=== PATIENT | male | born 1955 | race Caucasian/White ===

== ENCOUNTER 2019-01-06 06:41 | Inpatient (IN) ==
[~2019-01-06 06:41] MED LIST: Bacitracin 50,000 UNIT, Polymyxin B Sulfate 500,000 UNIT, Sodium Chloride IRRigation 1,... IR ONE
[2019-01-06] MEDS ORDERED: Albuterol 2.5 MG/3 ML NEBULIZER IH ONE (06:59)
[2019-01-06] MEDS ORDERED: CeFAZolin Syr 2,000MG/20 ML 2,000 MG/20 ML SYRINGE IVPB ONE (06:59)
[2019-01-06] MEDS ORDERED: Ringers Solution, Lactated 1,000 ML IVC SCH ×2 (07:00→13:12)
[2019-01-06] MEDS ORDERED: *HR* Methadone 10 MG TABLET PO ONE (07:17)
[2019-01-06] MEDS ORDERED: Ipratropium/Albuterol Neb 3 ML IH PRN (07:17)
[2019-01-06] MEDS ORDERED: Gabapentin 300 MG CAPSULE PO ONE (07:17)
[2019-01-06] MEDS ORDERED: Acetaminophen IV 1,000 MG/100 ML INFUS..BTL IVPB ONE (07:17)
[2019-01-06] MEDS ORDERED: Celecoxib 200 MG CAPSULE PO ONE (07:17)
--- NOTE | 2019-01-06 07:18 | Anesthesia Evaluation PreOp ---
Date of Encounter: 01/06/19 Time of Encounter: 07:37 - Past History Planned Operation: ACDF C4-C6, C5 CORPECTOMY Cardiac History: HTN, Hyperlipidemia, Cardiac Surgery (TRANS THORACIC MV REPAIR 2015), Other (MOD CAD BY [facility], NORMAL EF 2017) Pulmonary History: Smoker, COPD, MARIANGEL Dx (NOT CPAP COMPLIANT) WORKERS COMPENSATION ADJUSTER History: Other (CER VICAL RADICULOPATHY) Other Medical History: Denies Any Significant HX Anesthesia History: No Prior Anesthetic Complications, Past Anesthesia Alcohol Use: none Drug use: none Medications and Allergies Albuterol Sulfate [Ventolin Hfa] 2 puff IH Q6H PRN 01/06/19 [History] Budesonide/Formoterol 160/4.5 [Symbicort 160/4.5] 2 puff IH BIDR 01/06/19 [History] Buspirone HCl [Buspar] 10 mg PO BID 01/06/19 [History] Ibuprofen [Ibu-200] 1,200 mg PO TID 01/06/19 [History] Tiotropium [place] [Spiriva Respimat] 2 puff IH DAILY 01/06/19 [History] Allergy/AdvReac Type Severity Reaction Status Date / Time No Known Allergies Allergy Verified 01/06/19 07:26 - Meds/Allergy Pre-op Review Medications Reviewed: Yes Allergies Reviewed: Yes Beta Blockers on Current Med List: No Anesthesia Results - Labs Laboratory Tests 11/19/18 12/31/18 12/31/18 15:24 10:35 10:35 Hgb 14.8 Plt Count 213 Potassium 3.7 Creatinine 1.21 Est GFR (Non-Af Amer) > 60 Hemoglobin A1c 6.2 H Anesthesia Exam Vital Signs/O2 Sat/Glucose, Most Recent Temp Pulse Resp BP Pulse Ox 98.5 F 92 18 175/96 96 01/06/19 07:13 01/06/19 07:13 01/06/19 07:13 01/06/19 07:13 01/06/19 07:13 Weight: 82 KG - BMI 27 NPO (# of Hours): 8 - HEENT Mallampati: II (FULL NECK EXTENSION WITHOUT SYMPTOMS) Teeth: Missing (ONLY 4 TEETH) - WORKERS COMPENSATION ADJUSTER WORKERS COMPENSATION ADJUSTER Motor: Normal RUE, Normal LUE, Normal Face - Cardiac Rhythm: Regular - Pulmonary Breath Sounds: bilateral Clear Anesthesia Assess/Plan ASA Score: 3 Anesthetic Plan: General Monitoring Plan: Standard Monitors, A-Line (POSSIBLE) Recovery Plan: PACU
[2019-01-06] MEDS ORDERED: Dexamethasone 4 MG/ML VIAL ONE (07:20)
[2019-01-06] MEDS ORDERED: Lidocaine -MPF 2% 2 ML VIAL ONE (07:20)
[2019-01-06] MEDS ORDERED: *HR* FentaNYL (PF) 100 MCG/2 ML VIAL ONE (07:20)
[2019-01-06] MEDS ORDERED: Ondansetron 4 MG/2 ML VIAL ONE (07:20)
[2019-01-06] MEDS ORDERED: *HR* Succinylcholine 200 MG/10 ML VIAL IVP ONE (07:20)
[2019-01-06] MEDS ORDERED: *HR* Propofol 200 MG/20 ML VIAL IVP ONE ×4 (07:21→11:03)
[2019-01-06] MEDS ORDERED: *HR* Midazolam HCl 2 MG/2 ML VIAL ONE (07:21)
[2019-01-06] MEDS ORDERED: Lidocaine HCL 4 ML Topical Solution (Laryng-O-Jet Kit Sterile Pak) TP ONE (07:21)
[2019-01-06] MEDS ORDERED: *HR* Remifentanil 1 MG VIAL IVP ONE ×2 (07:25→10:18)
[2019-01-06] MEDS ORDERED: Propofol 500 MG/50 ML INFUS..BTL ONE ×5 (07:25→09:57)
[2019-01-06] MEDS ORDERED: *HR* Phenylephrine 10 MG/ML VIAL ONE (07:26)
--- NOTE | 2019-01-06 07:39 | History & Physical Report ---
Date of Encounter: 01/06/19 Time of Encounter: 07:38 24 Hour HP Update - Instructions Instructions: If the History and Physical is less than 30 days old and was completed prior to A.M. admission and or procedure and has NOT been updated on calendar day of procedure please complete this update prior to performing procedure. - Update Patient reports changes in Medical Condition: No Changes in examination, assessment, or condition: No Changes in Medication: No Preop tests/diagnostics Reviewed: Yes Pre-Op MRSA Screen: Negative Surgery Remains Indicated: Yes Consent for Planned Operative Procedure(s) Verified: Yes - Pre-Operative Checklist Preoperative Checklist Indicated: No Prophylactic Antibiotic Ordered: Yes Home Medications Include Beta Keenan: No Beta Keenan Taken Today (Day of Surgery): No Beta Keenan Taken Yesterday (Day Prior to Surgery): No Is VTE Prophylaxis Indicated?: Yes
[2019-01-06] MEDS ORDERED: Ondansetron 4 MG/2 ML VIAL IVP ONE (07:48)
[2019-01-06] MEDS ORDERED: *HR* HYDROmorphone (PF) 1 MG/ML SYRINGE IVP PRN (07:48)
[2019-01-06] MEDS ORDERED: Ketorolac 30 MG/ML VIAL IVP ONE (07:48)
[2019-01-06] MEDS ORDERED: *HR* OxyCODONE Immed Rel 5 MG TABLET PO PRN (07:48)
[2019-01-06] MEDS ORDERED: *HR* Promethazine 25 MG/ML VIAL IVP PRN (07:48)
[2019-01-06] MEDS ORDERED: *HR* HYDROMORPHONE 2 MG/ML VIAL ONE (11:22)
--- NOTE | 2019-01-06 11:29 | Orthopedic Operative Note ---
Date of procedure: 01/06/19 Pre-op diagnosis: Cervical stenosis, cervical myelopathy, myelomalacia cervical cord Post-op diagnosis: same Operation/Findings: Corpectomy C5, anterior cervical fusion C4-C6: The patient was brought to the operating room and placed supine on the operating room table. Successful general endotracheal anesthesia intubation was performed. Neurophysiologic monitoring personnel placed leads on the upper and lower extremities as well as the cranium for EMG monitoring purposes. Appropriate baseline potentials were noted by the neurophysiologic monitoring staff. Hamilton catheter was placed prior to positioning. Compression boots and stockings were placed for deep vein thrombosis prophylaxis. Padding was also placed all bony prominences including the ulnar nerve near the medial epicondyles of the elbows were appropriately padded. Mild traction was placed on the bilateral shoulders and taped into place. Preoperative antibiotics were administered. The area from the mandible bilaterally to the upper thoraces was prepped and draped in the usual sterile fashion. An oblique incision was made at the level of the cricoid cartilage which is approximately 3 cm in length and extended from the midline of the cervical spine laterally towards the sternocleidomastoid muscle on the left. It was 1 cm medial and parallel to the sternocleidomastoid muscle on the left. We then performed standard medial approach to the carotid sheath. Sponges were used to tease the fascial medial to the sternocleidomastoid muscle while carefully controlling and palpating the carotid artery. Using careful dissection we were able to get to the level of the anterior vertebral bodies and longus coli muscles. The spinal needle was placed at the appropriate C5-6 level, and intraoperative radiograph was obtained which was a cervical spine lateral radiograph. The needle and radiograph confirmed we were at the correct C5-6 operative level. We further exposed this level by using Bovie cautery under the medial edge of the longus colli muscles to allow them to be retracted approximately 2 mm laterally on each side. An 11 blade was used to perform anterior discectomy at the appropriate C5-6 level after an initial annulotomy of the anterior longitudinal ligament and annulus was performed. Further disc material was removed with pituitary Rongeurs. Subsequently, Synthes pins were placed at the C5 and C6 vertebral bodies respectively to provide distraction. We then used a Trimline cervical retractor which was placed in both medial and lateral as well as inferior superior direction to allow full visualization of the appropriate C5-6 disc and C5 and C6 vertebral bodies. The Leica microscope was brought to the field and the remainder of the procedure was performed under the guidance of this microscope. Using pituitary rongeurs and small curettes, various micro-instruments, a full discectomy was performed at the appropriate C5-6 level. The posterior longitudinal ligament was encountered and appeared partially calcified. A portion of this ligament was removed. We then turned our attention to the C4-5 level where a similar series of procedures was performed including discectomy, removal of spondylitic material, and end plate preparation were performed. This left the C4-5 and C5-6 levels fully decompressed to the posterior longitudinal ligament which was partially removed. This left intervening C5 vertebral body bone. We used rongeurs to remove this intervening C5 vertebral body bone. Bone was saved for later use. We removed bone all the way to the posterior longitudinal ligament and removed portions of the posterior longitudinal ligament such that the spinal cord could be visualized. After this corpectomy decompression, the area from the inferior endplate of C4 to the superior endplate of C6 was fully decompressed to the posterior longitudinal ligament of which many parts had been removed. We used the calipers to measure the intervening space between C4 and C6. We selected the appropriate size expandable interbody cage. We then packed the expandable cage ([employer]tr[employer], T2 stratosphere) with autograft bone obtained from the corpectomy of C5. This was carefully placed under direct visualization and the aorta fluorography in the space between C4 and C6 and one found to be in appropriate position the rhythmic gymnastics coach was removed. A 40mm cervical plate was then placed on the anterior aspect of the C4, and C6 vertebral bodies. The plate was placed in the midline position after drilling four 13 mm self tapping screws and inserting them. They were locked in place using standard Venture plate maneuvers. At this point a lateral radiograph of the cervical spine was obtained and showed satisfactory position of the expandable cage, graft, and plate. The wound was copiously irrigated and bleeders encountered were cauterized using Bovie cautery. Platysma was closed with interrupted 2-0 Vicryl sutures. Running 3-0 Monocryl suture was used for skin closure. Sterile dressing was placed over the neck wound. A cervical collar was placed. The patient was transferred to a hospital bed and extubated. The patient was noted to be fully motor and sensory intact in the recovery room at the end of the pro cedure. The medications. All sponge instrument and needle counts were correct at the end of the procedure. Anesthesia: GETA Surgeon: Kranthi Landaverde Jr Was there an press operator assistant present: No Estimated blood loss (cc): 20 Specimen: None Condition: stable Disposition: PACU
[2019-01-06] MEDS: *HR* Labetalol 20 MG/4 ML SYRINGE IVP PRN ×4 (12:10→12:30)
--- NOTE | 2019-01-06 12:51 | Anesthesia Evaluation Post Op ---
Date of Encounter: 01/06/19 Time of Encounter: 12:50 - Vital Signs Vital Signs: Selected Entries 01/06/19 12:21 01/06/19 12:41 Temperature 98.2 F Pulse Rate 69 Respiratory Rate 15 Blood Pressure 169/98 O2 Sat by Pulse Oximetry 95 - Lungs Lungs: Clear Ascult./Percussion - Airway Airway: Non-obstructed - Cardiovascular Regular Rate - Mental Status Mental Status: Alert & Oriented, Answers Appropriately - Nausea Vomiting Nausea Vomiting: Not Present - Hydration Hydration: Ice chips, Hamilton catheter - Discharge PostOp Status: Transfer Patient to floor
[2019-01-06] MEDS ORDERED: Naloxone 0.4 MG/ML INJ IVP PRN (13:12)
[2019-01-06] MEDS ORDERED: Acetaminophen 325 MG TABLET PO PRN (13:12)
[2019-01-06] MEDS ORDERED: Ondansetron 4 MG/2 ML VIAL IVP PRN (13:12)
[2019-01-06] MEDS ORDERED: *HR* PHENYLEPHRINE 1,000 MCG/10 ML SYRINGE IVP ONE (13:45)
[2019-01-06] MEDS: *HR* OxyCODONE Immed Rel 5 MG TABLET PO PRN ×2 (16:29→20:32)
[2019-01-06] MEDS: Budesonide/Formoterol 160/4.5 1 PUFF INH IH SCH (19:35)
[2019-01-06] MEDS: Temazepam 15 MG CAPSULE PO PRN (22:14)
[2019-01-07] MEDS: *HR* OxyCODONE Immed Rel 5 MG TABLET PO PRN ×5 (01:55→22:38)
[2019-01-07] MEDS: Budesonide/Formoterol 160/4.5 1 PUFF INH IH SCH ×2 (07:29→18:17)
[2019-01-07] MEDS: Tiotropium 18 MCG inhalation IH SCH (07:30)
[2019-01-07] MEDS ORDERED: NON-FORMULARY MEDICATION 1 EACH EACH (Tiotropium Bromide [Spiriva Respimat] 2 PUFF) IH SCH (09:00)
[2019-01-07] MEDS: *HR* HYDROcodone/Acet 5/325 mg TABLET PO PRN ×2 (10:33→19:39)
[2019-01-07] MEDS: Temazepam 15 MG CAPSULE PO PRN (23:21)
[2019-01-08] MEDS: *HR* OxyCODONE Immed Rel 5 MG TABLET PO PRN ×2 (03:58→11:24)
[2019-01-08] MEDS ORDERED: diazePAM 5 MG TABLET PO ONE (05:07)
[2019-01-08] MEDS: Tiotropium 18 MCG inhalation IH SCH (07:34)
[2019-01-08] MEDS: Budesonide/Formoterol 160/4.5 1 PUFF INH IH SCH (07:34)
[2019-01-08] MEDS: *HR* HYDROcodone/Acet 5/325 mg TABLET PO PRN (07:47)
--- NOTE | 2019-01-08 08:43 | Electrocardiograph Report ---
[place] [id number] Test Date: 2019-01-08 Pat Name: Elvis Hassan Department: 114 Room: [facility] Gender: M Screw Cutter: : 1955 Requested By: Kranthi Landaverde Order Number: [id number] Reading MD: Lisandro Hairston Measurements Intervals [place] Rate: 97 P: 64 AR: 154 QRS: -4 QRSD: 87 T: 59 QT: 336 QTc: 391 Interpretive Statements SINUS RHYTHM Electronically Signed On 01-08-2019 8:41:47 EDT by Lisandro Hairston
[2019-01-08 11:31] VITALS: BP 168/101
--- NOTE | 2019-01-09 08:58 | Orthopedics Progress Note ---
Date of Encounter: 01/07/19 Time of Encounter: 12:30 - Assessment and Plan (1) Myelomalacia of cervical cord Status: Chronic (2) Cervical spinal stenosis Status: Chronic (3) Cervical myelopathy Status: Chronic (4) Status post cervical spinal fusion Status: Acute Subjective Principal diagnosis: s/p acdf with corpectomy Interval history: POD#1 s/p Corpectomy C5, anterior cervical fusion C4-C6 [Cervical stenosis, cervical myelopathy, myelomalacia cervical cord] 01/06/19 Patient seen at bedside. Spouse at bedside. A&Ox3 Dressing and incision c/d/i No calf tenderness, erythema, or warmth. Neurovascularly intact extremities. Labwork, vitals, and medications reviewed. Pain control: Adequate Participating in therapy. All questions and concerns addressed. Educated on use of incentive spirometer, ambulation, and hydration. Patient educated on post-operative restrictions and care. Addressed: see above. Patient course and disposition discussed with Dr. Landaverde D/C plan: Continue postoperative care Objective Vital signs: Vital Signs Temp Pulse Resp BP Pulse Ox 01/08/19 11:30 98.3 F 106 17 168/101 95 Consult Discharge Plan - Plan Instructions: Oxycodone/Acetaminophen (By mouth), Cyclobenzaprine (By mouth), Laxative, Stool Softeners (By mouth) Referrals: NONE,PCP [Primary Care Provider] - Prescriptions: Docusate Sodium [Colace] 100 mg PO BID 5 Days #10 capsule Cyclobenzaprine [Flexeril] 10 mg PO TID PRN 7 Days #21 tablet PRN Reason: Muscle Pain OxyCODONE Immed Rel [Roxicodone 5 MG] 5 mg PO Q6H PRN 5 Days #20 tablet PRN Reason: Severe Pain
--- NOTE | 2019-01-09 09:02 | Discharge Summary ---
Date of Encounter: 01/08/19 Time of Encounter: 12:30 - Discharge Diagnosis (1) Myelomalacia of cervical cord Priority: Primary Status: Chronic (2) Cervical spinal stenosis Priority: Primary Status: Chronic (3) Cervical myelopathy Priority: Primary Status: Chronic (4) Status post cervical spinal fusion Priority: Primary Status: Acute - Hospital Course Hospital course: Mr. Hassan is a 63 year old male POD#2 s/p Corpectomy C5, anterior cervical fusion C4-C6 [Cervical stenosis, cervical myelopathy, myelomalacia cervical cord] 01/06/19 Patient seen at bedside. A&Ox3 Dressing and incision c/d/i No calf tenderness, erythema, or warmth. Neurovascularly intact b/l LE. Labwork, vitals, and medications reviewed. Pain control: Adequate Participating in therapy. All questions and concerns addressed. Educated on use of incentive spirometer, ambulation, and hydration. Patient educated on post-operative restrictions and care. Addressed: see above. Patient course and disposition discussed with Dr. Barcenas D/C plan: home today - Time Spent with Patient Total time spent providing and/or coordinating discharge services: - Discharge Medications Prescriptions: New Cyclobenzaprine [Flexeril] 10 mg PO TID PRN 7 Days #21 tablet PRN Reason: Muscle Pain OxyCODONE Immed Rel [Roxicodone 5 MG] 5 mg PO Q6H PRN 5 Days #20 tablet PRN Reason: Severe Pain Docusate Sodium [Colace] 100 mg PO BID 5 Days #10 capsule Continued Tiotropium [place] [Spiriva Respimat] 2 puff IH DAILY Albuterol Sulfate [Ventolin Hfa] 2 puff IH Q6H PRN PRN Reason: Shortness Of Breath Buspirone HCl [Buspar] 10 mg PO BID Budesonide/Formoterol 160/4.5 [Symbicort 160/4.5] 2 puff IH BIDR Discontinued Ibuprofen [Ibu-200] 1,200 mg PO TID Home Medications: Albuterol Sulfate [Ventolin Hfa] 2 puff IH Q6H PRN 01/06/19 [History] Budesonide/Formoterol 160/4.5 [Symbicort 160/4.5] 2 puff IH BIDR 01/06/19 [History] Buspirone HCl [Buspar] 10 mg PO BID 01/06/19 [History] Tiotropium [place] [Spiriva Respimat] 2 puff IH DAILY 01/06/19 [History] Cyclobenzaprine [Flexeril] 10 mg PO TID PRN 7 Days #21 tablet 01/07/19 [Rx] Docusate Sodium [Colace] 100 mg PO BID 5 Days #10 capsule 01/07/19 [Rx] OxyCODONE Immed Rel [Roxicodone 5 MG] 5 mg PO Q6H PRN 5 Days #20 tablet 01/07/19 [Rx] Allergies/Adverse Reactions: Allergy/AdvReac Type Severity Reaction Status Date / Time No Known Allergies Allergy Verified 01/06/19 07:26 Date of admission: 01/06/19 13:14 Primary care physician: PCP NONE Consults: 01/06/19 13:12 Consult to Occupational Therapy [CONS] Routine Comment: Evaluate, develop and implement POC Reason for Consult: Postoperative rehabilitation Does patient have active BEDREST order?: No Is patient medically & hemodynamically stable?: Yes Patient assessed for mobility or mobilized this visit?: No Consult to Physical Therapy [CONS] Routine Comment: Evaluate, develop and implement POC Reason for Consult: Postoperative rehabilitation Does patient have active BEDREST order?: No Is patient medically & hemodynamically stable?: Yes Patient assessed for mobility or mobilized this visit?: No Consult to Spine Navigator [CONS] [CONS] Routine Discharging clinician: Kranthi Landaverde Jr Anticipated date of discharge: 01/08/19 - VTE Documentation of Mechanical Device: Graduated compression elastic hosiery - Impressions ITS Impressions Cervical Spine X-Ray 01/06/19 08:20 IMPRESSION: Fluoroscopy was utilized for the purposes of anterior fusion from C4 through C6 D/ / Lance Manning MD / Lance Manning MD Interpreting Provider: Lance Manning MD Fluoroscopy 01/06/19 08:20 IMPRESSION: Fluoroscopy was utilized for the purposes of anterior fusion from C4 through C6 D/ / Lance Manning MD / Lance Manning MD Interpreting Provider: Lance Manning MD Cervical Spine X-Ray 01/07/19 08:29 IMPRESSION: 1. Expected new postoperative changes from C4 to C6 as above, including postoperative prevertebral edema. 2. Moderate cervical spine degenerative changes. 3. Bony demineralization. D/ / Fran Blair MD / Fran Blair MD Interpreting Provider: Fran Blair MD - Patient Status Disposition: Home, Self-Care Condition: Fair Functional capacity at discharge: uses cane/walker Overall status at discharge: patient is progressing back to baseline - Discharge Instructions Instructions: Oxycodone/Acetaminophen (By mouth), Cyclobenzaprine (By mouth), Laxative, Stool Softeners (By mouth) Follow Up With: NONE,PCP [Primary Care Provider] - - Diet and Activity Activity: as per physical therapy Diet: advance to your usual diet
== END 2019-01-08 15:00 | disposition home or self-care (01) ==
LOC: SAMDAY 06:41 → 3NENU 13:14
PROVIDERS: ADMIT Orthopaedic Surgery Orthopaedic Surgery of the Spine; ATTEND Orthopaedic Surgery Orthopaedic Surgery of the Spine